=== PATIENT | male | born 1940 | race Caucasian/White ===

== ENCOUNTER 2021-07-07 09:49 | Outpatient (CLI) | payer MEDICARE | END 2021-07-07 09:50 | disposition home or self-care (01) | LOC: CSHCT 09:49 | PROVIDERS: ATTEND Internal Medicine Cardiovascular Disease | DX: M25.861 Other specified joint disorders, right knee (principal) | CPT/HCPCS: 82565 ==

== ENCOUNTER 2021-07-10 09:02 | Outpatient (CLI) | payer MEDICARE | END 2021-07-10 09:03 | disposition home or self-care (01) | LOC: CSHMRI 09:02 | PROVIDERS: ATTEND Internal Medicine Cardiovascular Disease | DX: R22.41 Localized swelling, mass and lump, right lower limb (principal); Z95.0 Presence of cardiac pacemaker; M71.21 Synovial cyst of popliteal space [Baker], right knee; M65.861 Other synovitis and tenosynovitis, right lower leg; J90 Pleural effusion, not elsewhere classified; R91.8 Other nonspecific abnormal finding of lung field | CPT/HCPCS: 71045 ==

== ENCOUNTER 2021-09-25 14:25 | Outpatient (CLI) | payer MEDICARE, BC | END 2021-09-25 14:26 | disposition home or self-care (01) | LOC: CSHSPEC 14:25 | PROVIDERS: ATTEND Neurological Surgery | DX: M48.062 Spinal stenosis, lumbar region with neurogenic claudication (principal); Z95.0 Presence of cardiac pacemaker; J90 Pleural effusion, not elsewhere classified; R91.8 Other nonspecific abnormal finding of lung field; Z98.890 Other specified postprocedural states; M47.816 Spondylosis without myelopathy or radiculopathy, lumbar region | CPT/HCPCS: 71045; 72148; 82565 ==

== ENCOUNTER 2021-10-23 11:10 | Outpatient (CLI) | payer MEDICARE, BC ==
[2021-10-23 21:49] LABS: SARS-CoV-2 PCR by NAA Not Detected (NotDetected)
== END 2021-10-23 11:11 | disposition home or self-care (01) ==
LOC: CSHLAB 11:10
PROVIDERS: ATTEND Internal Medicine Cardiovascular Disease
DX: Z20.822 Contact with and (suspected) exposure to COVID-19 (principal); I48.91 Unspecified atrial fibrillation
CPT/HCPCS: U0003; U0005

== ENCOUNTER 2021-10-25 11:13 | Day surgery (SDC) | payer MEDICARE, BC ==
[2021-10-25] MEDS ORDERED: Ketamine 50 MG/ML (10ML VIAL) ONE (13:12)
[2021-10-25] MEDS ORDERED: Midazolam HCl 2 mg/2 ml Vial ONE (13:12)
[2021-10-25 14:26] VITALS: TEMP 97.8
== END 2021-10-25 14:55 | disposition home or self-care (01) ==
LOC: CSHSDC 11:13
PROVIDERS: ATTEND Internal Medicine Cardiovascular Disease
DX: I48.0 Paroxysmal atrial fibrillation (principal); I11.0 Hypertensive heart disease with heart failure; I50.9 Heart failure, unspecified; I25.10 Atherosclerotic heart disease of native coronary artery without angina pectoris; E11.9 Type 2 diabetes mellitus without complications; E78.5 Hyperlipidemia, unspecified; Z95.1 Presence of aortocoronary bypass graft; Z79.899 Other long term (current) drug therapy; Z79.84 Long term (current) use of oral hypoglycemic drugs; Z79.82 Long term (current) use of aspirin; Z79.4 Long term (current) use of insulin
CPT/HCPCS: 92960; 93005; 93010; J2250

== ENCOUNTER 2022-04-06 09:48 | Inpatient (IN) | payer MEDICARE, BC ==
[2022-04-06 10:16] LABS: Actual Bicarbonate (HCO3v) 25 mEq/L (22-28); Base Excess -0.4 mEq/L (-2.0 to +3.0); Calcium, Ionized (venous) 1.15 mmol/L (1.16-1.32); Chloride (VBG) 97 mmol/L (98-106); Potassium (VBG) 4.77 mmol/L (3.70-5.30); Puncture Site Other Site; RapidComm Collect By lab tech; Sodium 127.2 mmol/L (133-146); pH (venous) 7.37 (7.32-7.43)
[2022-04-06 10:30] LABS: Bilirubin Neg (Negative); Blood, Urine Negative (Negative); Clarity Clear (Clear); Glucose, Urine (Dipstick) 100 mg/dL (Negative); Ketone, Urine Negative (Negative); Leukocyte Negative (Negative); Nitrite Negative (Negative); Protein, Urine (Dipstick) 30 mg/dl (Neg-Trace); Urobilinogen Normal mg/dL (Less than 2)
[2022-04-06 10:35] LABS: MDiff Complete? YES; Mean Corpuscular HGB CONC 32.7 g/dL (32.0-36.0); Mean Corpuscular Hemoglobin 30.2 pg (27.0-33.0); Mean Corpuscular Volume 92.3 fl (81.2-95.1); Mean Platelet Volume 9.5 fl (7.4-10.4); Platelet Count 197 10x3/uL (150-450); RBC Distribution Width 17.7 % (11.5-14.5); Red Blood Cell (RBC) Count 2.98 10x6/uL (4.32-5.72); White Blood Cell (WBC) Count 5.9 10x3/uL (3.5-10.5)
[2022-04-06 10:40] LABS: RBC/HPF 0-3 HPF (0-3); WBC/HPF 0-3 HPF (0-3)
[2022-04-06 10:41] LABS: Bacteria/HPF None Seen HPF (None Seen); Squamous Epithelial None Seen HPF (0-3)
[2022-04-06 10:55] LABS: ALT (SGPT) 21 U/L (8-55); AST (SGOT) 29 U/L (5-34); Albumin 3.5 g/dL (3.4-4.8); Alkaline Phosphatase 161 U/L (40-110); Anion Gap 17 mmol/L (10-20); BUN (Urea Nitrogen) 64 mg/dL (8.4-25.7); Bilirubin, Total 1.1 mg/dL (0.2-1.2); Calc. Creatinine Clearance 0 mL/min (70-130); Calcium 9.3 mg/dL (7.8-10.44); Carbon Dioxide 24 mmol/L (23-31); Chloride 97 mmol/L (98-107); Estimated GFR 19; Globulin 4.2 g/dL (2.4-3.5); Glucose 249 mg/dL (83-110); Lipase 53 U/L (8-78); Magnesium 2.5 mg/dL (1.6-2.6); Potassium 5.1 mmol/L (3.5-5.1); Protein, Total 7.7 g/dL (5.8-8.1); Sodium 133 mmol/L (136-145)
[2022-04-06 11:02] LABS: SARS-CoV-2 NAA Rapid Test Not Detected (NotDetected)
[2022-04-06 11:13] LABS: Lymphocytes 4 % (21-51); Monocytes 11 % (0-10); Neutrophil 85 % (42-75)
[2022-04-06 11:14] LABS: Diff Comment (RBC Morph SCRN) NORMAL; Platelet Morphology Comment Appears Adequate
[2022-04-06 11:15] LABS: CKMB 2.8 ng/mL (0-6.6)
[2022-04-06] MEDS ORDERED: Dextrose 5% in Water 1,000 ML IV PRN (12:59)
[2022-04-06] MEDS ORDERED: Dextrose 50% Abboject 50 ML SYRINGE SLOW IVP PRN (12:59)
[2022-04-06] MEDS ORDERED: Senokot S 8.6-50 MG TAB PO PRN (12:59)
[2022-04-06] MEDS ORDERED: Acetaminophen 325 MG TAB PO PRN (12:59)
[2022-04-06 13:56] LABS: Lactic Acid 1.3 mmol/L (0.5-2.2)
[2022-04-06 14:04] LABS: Troponin I Less than 0.010 ng/mL (< 0.028)
[2022-04-06 14:16] VITALS: BMI 29.4
[2022-04-06] MEDS ORDERED: Famotidine 20 MG TAB PO SCH (15:00)
[2022-04-06] MEDS: Albumin 25% 25 GM/100 ML BOT IVPB SCH ×2 (15:37→22:15)
[2022-04-06 16:53] LABS: Troponin I 0.096 ng/mL (< 0.028)
[2022-04-06] MEDS: HumaLOG 300 UNITS/3 ML VIAL SC PRN (16:55)
[2022-04-06] MEDS: Dronedarone HCl 400 MG TAB PO SCH (17:29)
[2022-04-06] MEDS: Apixaban 2.5 MG TAB PO SCH (20:43)
[2022-04-07] MEDS: Albumin 25% 25 GM/100 ML BOT IVPB SCH ×3 (02:20→08:38)
[2022-04-07 05:17] LABS: #Eosinphils 0.2 10x3/uL (0.0-0.5); #Neutrophils 3.6 10x3/uL (1.5-8.4); %Basophils 0.7 % (0.0-2.0); %Eosinophils 4.3 % (0.0-6.0); %Lymphocytes 11.8 % (18.0-47.0); %Monocytes 18.2 % (0.0-10.0); %Neutrophils 64.6 % (40.0-75.0); Hemoglobin 7.5 g/dL (13.5-17.5); Mean Corpuscular HGB CONC 32.2 g/dL (32.0-36.0); Mean Corpuscular Hemoglobin 29.9 pg (27.0-33.0); Mean Corpuscular Volume 92.8 fl (81.2-95.1); Mean Platelet Volume 9.4 fl (7.4-10.4); Platelet Count 158 10x3/uL (150-450); RBC Distribution Width 17.8 % (11.5-14.5); Red Blood Cell (RBC) Count 2.51 10x6/uL (4.32-5.72); White Blood Cell (WBC) Count 5.6 10x3/uL (3.5-10.5)
[2022-04-07 05:41] LABS: ALT (SGPT) 15 U/L (8-55); AST (SGOT) 20 U/L (5-34); Albumin 3.8 g/dL (3.4-4.8); Alkaline Phosphatase 120 U/L (40-110); Anion Gap 14 mmol/L (10-20); BUN (Urea Nitrogen) 68 mg/dL (8.4-25.7); Bilirubin, Total 1.2 mg/dL (0.2-1.2); Calc. Creatinine Clearance 24 mL/min (70-130); Calcium 9.4 mg/dL (7.8-10.44); Carbon Dioxide 27 mmol/L (23-31); Chloride 98 mmol/L (98-107); Estimated GFR 18; Globulin 3.4 g/dL (2.4-3.5); Glucose 166 mg/dL (83-110); Potassium 4.4 mmol/L (3.5-5.1); Protein, Total 7.2 g/dL (5.8-8.1); Sodium 135 mmol/L (136-145)
[2022-04-07] MEDS: Tamsulosin HCl 0.4 MG CAP PO SCH (08:38)
[2022-04-07] MEDS: Famotidine 20 MG TAB PO SCH (08:38)
[2022-04-07] MEDS: Dronedarone HCl 400 MG TAB PO SCH ×2 (08:38→17:43)
[2022-04-07] MEDS: Ascorbic Acid 500 mg Chewable Tablet PO SCH (08:38)
[2022-04-07] MEDS: Potassium Chloride 20 MEQ TAB PO SCH (08:38)
[2022-04-07] MEDS: Apixaban 2.5 MG TAB PO SCH ×2 (08:39→19:51)
[2022-04-07] MEDS: Cholecalciferol 1,000 UNITS (25 MCG) TAB PO SCH (08:40)
[2022-04-07] MEDS ORDERED: Aspirin 81 mg Enteric Coated Tablet PO SCH (09:00)
[2022-04-07] MEDS ORDERED: Apixaban 2.5 MG TAB PO SCH (09:00)
[2022-04-07] MEDS ORDERED: Atenolol 25 MG TAB PO SCH (09:00)
[2022-04-07] MEDS: HumaLOG 300 UNITS/3 ML VIAL SC PRN ×3 (12:19→21:18)
[2022-04-08 04:58] LABS: #Eosinphils 0.3 10x3/uL (0.0-0.5); #Monocytes 1.3 10x3/uL (0.0-1.1); #Neutrophils 4.5 10x3/uL (1.5-8.4); %Basophils 0.6 % (0.0-2.0); %Eosinophils 4.5 % (0.0-6.0); %Lymphocytes 10.8 % (18.0-47.0); %Monocytes 18.7 % (0.0-10.0); %Neutrophils 65.1 % (40.0-75.0); Hemoglobin 7.9 g/dL (13.5-17.5); Mean Corpuscular HGB CONC 32.6 g/dL (32.0-36.0); Mean Corpuscular Hemoglobin 30.3 pg (27.0-33.0); Mean Corpuscular Volume 92.7 fl (81.2-95.1); Mean Platelet Volume 9.6 fl (7.4-10.4); Platelet Count 166 10x3/uL (150-450); RBC Distribution Width 18.5 % (11.5-14.5); Red Blood Cell (RBC) Count 2.61 10x6/uL (4.32-5.72); White Blood Cell (WBC) Count 6.9 10x3/uL (3.5-10.5)
[2022-04-08 05:12] LABS: Anion Gap 14 mmol/L (10-20); BUN (Urea Nitrogen) 70 mg/dL (8.4-25.7); Calc. Creatinine Clearance 23 mL/min (70-130); Calcium 9.5 mg/dL (7.8-10.44); Carbon Dioxide 27 mmol/L (23-31); Chloride 100 mmol/L (98-107); Estimated GFR 18; Glucose 139 mg/dL (83-110); Potassium 4.2 mmol/L (3.5-5.1); Sodium 137 mmol/L (136-145)
[2022-04-08] MEDS: Ascorbic Acid 500 mg Chewable Tablet PO SCH (08:40)
[2022-04-08] MEDS: Dronedarone HCl 400 MG TAB PO SCH ×2 (08:40→16:54)
[2022-04-08] MEDS: Famotidine 20 MG TAB PO SCH (08:40)
[2022-04-08] MEDS: Aspirin 81 mg Enteric Coated Tablet PO SCH (08:40)
[2022-04-08] MEDS: Apixaban 2.5 MG TAB PO SCH ×2 (08:40→21:10)
[2022-04-08] MEDS: Potassium Chloride 20 MEQ TAB PO SCH (08:40)
[2022-04-08] MEDS: Tamsulosin HCl 0.4 MG CAP PO SCH (08:40)
[2022-04-08] MEDS: Cholecalciferol 1,000 UNITS (25 MCG) TAB PO SCH (08:41)
[2022-04-08] MEDS ORDERED: Furosemide 40 MG TAB PO SCH (09:30)
[2022-04-08] MEDS: HumaLOG 300 UNITS/3 ML VIAL SC PRN ×3 (11:59→21:10)
[2022-04-09 04:59] LABS: Hemoglobin 7.9 g/dL (13.5-17.5); Mean Corpuscular HGB CONC 31.6 g/dL (32.0-36.0); Mean Corpuscular Hemoglobin 29.5 pg (27.0-33.0); Mean Corpuscular Volume 93.3 fl (81.2-95.1); Mean Platelet Volume 9.6 fl (7.4-10.4); Platelet Count 161 10x3/uL (150-450); RBC Distribution Width 18.7 % (11.5-14.5); Red Blood Cell (RBC) Count 2.68 10x6/uL (4.32-5.72); White Blood Cell (WBC) Count 6.8 10x3/uL (3.5-10.5)
[2022-04-09 05:15] LABS: Anion Gap 16 mmol/L (10-20); BUN (Urea Nitrogen) 68 mg/dL (8.4-25.7); Calc. Creatinine Clearance 25 mL/min (70-130); Calcium 9.6 mg/dL (7.8-10.44); Carbon Dioxide 24 mmol/L (23-31); Chloride 98 mmol/L (98-107); Estimated GFR 19; Glucose 192 mg/dL (83-110); Potassium 4.2 mmol/L (3.5-5.1); Sodium 134 mmol/L (136-145)
[2022-04-09 05:33] LABS: MDiff Complete? YES
[2022-04-09 05:44] LABS: Eosinophils 10 % (0-10); Lymphocytes 12 % (21-51); Monocytes 17 % (0-10); Neutrophil 60 % (42-75)
[2022-04-09 05:45] LABS: Platelet Morphology Comment Appears Adequate
[2022-04-09 05:46] LABS: RBC Morphology Normal
[2022-04-09] MEDS: HumaLOG 300 UNITS/3 ML VIAL SC PRN (06:03)
[2022-04-09] MEDS ORDERED: Furosemide 40 MG TAB PO SCH (07:30)
[2022-04-09] MEDS: Dronedarone HCl 400 MG TAB PO SCH (08:35)
[2022-04-09] MEDS: Aspirin 81 mg Enteric Coated Tablet PO SCH (08:36)
[2022-04-09] MEDS: Ascorbic Acid 500 mg Chewable Tablet PO SCH (08:36)
[2022-04-09] MEDS: Famotidine 20 MG TAB PO SCH (08:36)
[2022-04-09] MEDS: Potassium Chloride 20 MEQ TAB PO SCH (08:36)
[2022-04-09] MEDS: Apixaban 2.5 MG TAB PO SCH (08:36)
[2022-04-09] MEDS: Cholecalciferol 1,000 UNITS (25 MCG) TAB PO SCH (08:36)
[2022-04-09] MEDS: Tamsulosin HCl 0.4 MG CAP PO SCH (08:37)
[2022-04-09 11:39] VITALS: BP 98/50; TEMP 98.7
== END 2022-04-09 14:37 | disposition home health service (06) | DRG 291 ==
LOC: CSHERS 09:48 → CSHTELE 12:17
PROVIDERS: ADMIT Family Medicine; ATTEND Internal Medicine
PROC: 30233J1 Transfusion of Nonautologous Serum Albumin into Peripheral Vein, Percutaneous Approach (ICD-10-PCS; principal; 2022-04-06)
DX: I13.2 Hypertensive heart and chronic kidney disease with heart failure and with stage 5 chronic kidney disease, or end stage renal disease (principal); N18.6 End stage renal disease; I50.43 Acute on chronic combined systolic (congestive) and diastolic (congestive) heart failure; E87.1 Hypo-osmolality and hyponatremia; N17.9 Acute kidney failure, unspecified; I50.1 Left ventricular failure, unspecified; D63.1 Anemia in chronic kidney disease; I95.9 Hypotension, unspecified; E11.22 Type 2 diabetes mellitus with diabetic chronic kidney disease; I25.10 Atherosclerotic heart disease of native coronary artery without angina pectoris; Z96.653 Presence of artificial knee joint, bilateral; R79.89 Other specified abnormal findings of blood chemistry; I48.0 Paroxysmal atrial fibrillation; E78.5 Hyperlipidemia, unspecified; J44.9 Chronic obstructive pulmonary disease, unspecified; M54.9 Dorsalgia, unspecified; G89.29 Other chronic pain; D51.9 Vitamin B12 deficiency anemia, unspecified; I87.2 Venous insufficiency (chronic) (peripheral); L89.151 Pressure ulcer of sacral region, stage 1; R53.81 Other malaise; Z20.822 Contact with and (suspected) exposure to COVID-19; Z88.8 Allergy status to other drugs, medicaments and biological substances; Z79.899 Other long term (current) drug therapy; Z79.84 Long term (current) use of oral hypoglycemic drugs; Z95.0 Presence of cardiac pacemaker; Z79.01 Long term (current) use of anticoagulants; Z98.890 Other specified postprocedural states; Z95.1 Presence of aortocoronary bypass graft; Z79.82 Long term (current) use of aspirin; Z79.4 Long term (current) use of insulin
CPT/HCPCS: 36415; 36416; 71045; 80048; 80053; 81003; 81015; 82553; 82728; 82805; 83540; 83550; 83605; 83690; 83735; 83880; 84484; 85025; 85379; 93005; J1815; P9047; U0002

== ENCOUNTER 2022-04-13 10:51 | Inpatient (IN) | payer MEDICARE, BC ==
[2022-04-13 11:25] LABS: #Eosinphils 0.1 10x3/uL (0.0-0.5); #Monocytes 1.6 10x3/uL (0.0-1.1); #Neutrophils 7.9 10x3/uL (1.5-8.4); %Basophils 0.4 % (0.0-2.0); %Eosinophils 0.8 % (0.0-6.0); %Lymphocytes 6.7 % (18.0-47.0); %Neutrophils 76.6 % (40.0-75.0); Hemoglobin 9.2 g/dL (13.5-17.5); Mean Corpuscular HGB CONC 32.4 g/dL (32.0-36.0); Mean Corpuscular Hemoglobin 30.4 pg (27.0-33.0); Mean Corpuscular Volume 93.7 fl (81.2-95.1); Mean Platelet Volume 9.6 fl (7.4-10.4); Platelet Count 192 10x3/uL (150-450); RBC Distribution Width 20.8 % (11.5-14.5); Red Blood Cell (RBC) Count 3.03 10x6/uL (4.32-5.72); White Blood Cell (WBC) Count 10.3 10x3/uL (3.5-10.5)
[2022-04-13 11:32] LABS: ALT (SGPT) 24 U/L (8-55); AST (SGOT) 25 U/L (5-34); Albumin 3.8 g/dL (3.4-4.8); Alkaline Phosphatase 129 U/L (40-110); Anion Gap 17 mmol/L (10-20); BUN (Urea Nitrogen) 84 mg/dL (8.4-25.7); Bilirubin, Total 2.4 mg/dL (0.2-1.2); Calc. Creatinine Clearance 0 mL/min (70-130); Calcium 9.4 mg/dL (7.8-10.44); Carbon Dioxide 22 mmol/L (23-31); Chloride 97 mmol/L (98-107); Estimated GFR 15; Globulin 3.8 g/dL (2.4-3.5); Glucose 298 mg/dL (83-110); Lipase 24 U/L (8-78); Potassium 5.4 mmol/L (3.5-5.1); Protein, Total 7.6 g/dL (5.8-8.1); Sodium 131 mmol/L (136-145)
[2022-04-13 11:52] LABS: CKMB 1.6 ng/mL (0-6.6)
[2022-04-13] MEDS ORDERED: Furosemide 40 MG/4 ML VIAL ONE (13:09)
[2022-04-13 13:32] LABS: SARS-CoV-2 NAA Rapid Test Not Detected (NotDetected)
[2022-04-13] MEDS ORDERED: Ondansetron PF 4 MG/2 ML Vial IVP PRN (14:47)
[2022-04-13] MEDS ORDERED: Ondansetron ODT 4 MG TAB PO PRN (14:47)
[2022-04-13] MEDS ORDERED: Acetaminophen 325 MG TAB PO PRN (14:47)
[2022-04-13] MEDS ORDERED: Senokot S 8.6-50 MG TAB PO PRN (14:47)
[2022-04-13] MEDS ORDERED: Albuterol Sulfate 2.5 mg/3 ml Neb NEB PRN (14:57)
[2022-04-13] MEDS ORDERED: Benzonatate 100 MG CAP PO PRN (14:58)
[2022-04-13] MEDS ORDERED: hydrALAZINE 20 MG/ML VIAL SLOW IVP PRN (14:59)
[2022-04-13] MEDS ORDERED: Dextrose 5% in Water 1,000 ML IV PRN (15:34)
[2022-04-13] MEDS ORDERED: Dextrose 50% Abboject 50 ML SYRINGE SLOW IVP PRN (15:34)
[2022-04-13] MEDS ORDERED: Furosemide 40 MG/4 ML VIAL SLOW IVP SCH (19:00)
[2022-04-13 20:16] VITALS: BMI 31.8
[2022-04-14 00:44] LABS: Bilirubin Neg (Negative); Blood, Urine Negative (Negative); Clarity Clear (Clear); Glucose, Urine (Dipstick) 100 mg/dL (Negative); Ketone, Urine Negative (Negative); Leukocyte Negative (Negative); Nitrite Negative (Negative); Protein, Urine (Dipstick) Negative (Neg-Trace); Urobilinogen Normal mg/dL (Less than 2)
[2022-04-14 01:01] LABS: Bacteria/HPF Rare-Few HPF (None Seen); RBC/HPF 0-3 HPF (0-3); Squamous Epithelial 0-3 HPF (0-3)
[2022-04-14 05:02] LABS: Hemoglobin 8.2 g/dL (13.5-17.5); Mean Corpuscular HGB CONC 31.5 g/dL (32.0-36.0); Mean Corpuscular Hemoglobin 30.1 pg (27.0-33.0); Mean Corpuscular Volume 95.6 fl (81.2-95.1); Mean Platelet Volume 9.4 fl (7.4-10.4); Platelet Count 175 10x3/uL (150-450); Red Blood Cell (RBC) Count 2.72 10x6/uL (4.32-5.72); White Blood Cell (WBC) Count 6.8 10x3/uL (3.5-10.5)
[2022-04-14 05:24] LABS: Anion Gap 16 mmol/L (10-20); BUN (Urea Nitrogen) 80 mg/dL (8.4-25.7); Calc. Creatinine Clearance 23 mL/min (70-130); Carbon Dioxide 25 mmol/L (23-31); Chloride 99 mmol/L (98-107); Estimated GFR 16; Glucose 193 mg/dL (83-110); MDiff Complete? YES; Potassium 4.5 mmol/L (3.5-5.1); Sodium 135 mmol/L (136-145)
[2022-04-14 05:32] LABS: Eosinophils 4 % (0-10); Lymphocytes 8 % (21-51); Monocytes 15 % (0-10); Neutrophil 72 % (42-75)
[2022-04-14 05:33] LABS: Anisocytosis MODERATE=16-30 cells (100X) (0-5/hpf); Hypochromia MODERATE=16-30 cells (100X) (0-5/hpf); Macrocytosis SLIGHT = 6-15 cells (100X) (0-5/hpf); Microcytosis SLIGHT = 6-15 cells (100X) (0-5/hpf)
[2022-04-14 05:34] LABS: Platelet Morphology Comment Appears Adequate; Polychromasia SLIGHT = 2-3 cells (100X) (0-2/hpf)
[2022-04-14] MEDS ORDERED: Furosemide 40 MG/4 ML VIAL SLOW IVP SCH (06:00)
[2022-04-14] MEDS: Furosemide 40 MG/4 ML VIAL SLOW IVP SCH ×2 (06:40→10:55)
[2022-04-14] MEDS ORDERED: EPOETIN ALFA-EPBX (ESRD) 4,000 UNIT/ML VIAL SC SCH (10:00)
[2022-04-14] MEDS: Dronedarone HCl 400 MG TAB PO SCH ×2 (10:56→20:49)
[2022-04-14] MEDS: Lantus 1000 UNITS/10 ML VIAL SC SCH ×2 (10:56→20:49)
[2022-04-14] MEDS: Tamsulosin HCl 0.4 MG CAP PO SCH (10:56)
[2022-04-14] MEDS: Aspirin 81 mg Enteric Coated Tablet PO SCH (10:56)
[2022-04-14] MEDS ORDERED: Apixaban 2.5 MG TAB PO SCH (12:00)
[2022-04-14] MEDS: HumaLOG 300 UNITS/3 ML VIAL SC PRN ×2 (18:22→20:50)
[2022-04-14] MEDS: Apixaban 2.5 MG TAB PO SCH (20:48)
[2022-04-15 05:02] LABS: Hemoglobin 8.3 g/dL (13.5-17.5); Mean Corpuscular HGB CONC 32.9 g/dL (32.0-36.0); Mean Platelet Volume 9.2 fl (7.4-10.4); Platelet Count 173 10x3/uL (150-450); RBC Distribution Width 20.8 % (11.5-14.5); Red Blood Cell (RBC) Count 2.68 10x6/uL (4.32-5.72); White Blood Cell (WBC) Count 5.8 10x3/uL (3.5-10.5)
[2022-04-15 05:28] LABS: Anion Gap 15 mmol/L (10-20); BUN (Urea Nitrogen) 76 mg/dL (8.4-25.7); Calc. Creatinine Clearance 25 mL/min (70-130); Calcium 9.5 mg/dL (7.8-10.44); Carbon Dioxide 27 mmol/L (23-31); Chloride 100 mmol/L (98-107); Estimated GFR 17; Glucose 107 mg/dL (83-110); Sodium 138 mmol/L (136-145)
[2022-04-15 05:55] LABS: MDiff Complete? YES
[2022-04-15 06:02] LABS: Band 1 % (5-11); Eosinophils 5 % (0-10); Lymphocytes 16 % (21-51); Monocytes 19 % (0-10); Neutrophil 59 % (42-75)
[2022-04-15 06:03] LABS: Anisocytosis MODERATE=16-30 cells (100X) (0-5/hpf); Hypochromia SLIGHT = 6-15 cells (100X) (0-5/hpf); Macrocytosis SLIGHT = 6-15 cells (100X) (0-5/hpf); Microcytosis SLIGHT = 6-15 cells (100X) (0-5/hpf); Platelet Morphology Comment Appears Adequate; Polychromasia SLIGHT = 2-3 cells (100X) (0-2/hpf)
[2022-04-15] MEDS: Furosemide 40 MG/4 ML VIAL SLOW IVP SCH ×2 (06:11→14:46)
[2022-04-15] MEDS ORDERED: Nitroglycerin 0.4 MG TAB (25 Tab Bottle) SL PRN (08:36)
[2022-04-15] MEDS: Zinc Gluconate 50 MG TAB PO SCH (09:50)
[2022-04-15] MEDS: Potassium Chloride 20 MEQ TAB PO SCH (09:50)
[2022-04-15] MEDS: Apixaban 2.5 MG TAB PO SCH ×2 (09:51→21:05)
[2022-04-15] MEDS: Ascorbic Acid 500 mg Chewable Tablet PO SCH (09:51)
[2022-04-15] MEDS: Cholecalciferol 1,000 UNITS (25 MCG) TAB PO SCH (09:51)
[2022-04-15] MEDS: Tamsulosin HCl 0.4 MG CAP PO SCH (09:51)
[2022-04-15] MEDS: Aspirin 81 mg Enteric Coated Tablet PO SCH (09:51)
[2022-04-15] MEDS: Dronedarone HCl 400 MG TAB PO SCH ×2 (09:51→21:03)
[2022-04-15] MEDS: Lantus 1000 UNITS/10 ML VIAL SC SCH ×2 (10:14→21:06)
[2022-04-15] MEDS: HumaLOG 300 UNITS/3 ML VIAL SC PRN ×2 (17:10→21:06)
[2022-04-16 04:34] LABS: Hemoglobin 8.7 g/dL (13.5-17.5); Mean Corpuscular HGB CONC 32.2 g/dL (32.0-36.0); Mean Corpuscular Hemoglobin 30.5 pg (27.0-33.0); Mean Corpuscular Volume 94.7 fl (81.2-95.1); Mean Platelet Volume 9.2 fl (7.4-10.4); Platelet Count 186 10x3/uL (150-450); RBC Distribution Width 20.9 % (11.5-14.5); Red Blood Cell (RBC) Count 2.85 10x6/uL (4.32-5.72); White Blood Cell (WBC) Count 5.9 10x3/uL (3.5-10.5)
[2022-04-16 04:49] LABS: Anion Gap 15 mmol/L (10-20); BUN (Urea Nitrogen) 73 mg/dL (8.4-25.7); Calc. Creatinine Clearance 25 mL/min (70-130); Calcium 9.7 mg/dL (7.8-10.44); Carbon Dioxide 28 mmol/L (23-31); Chloride 100 mmol/L (98-107); Estimated GFR 18; Glucose 198 mg/dL (83-110); Potassium 4.1 mmol/L (3.5-5.1); Sodium 139 mmol/L (136-145)
[2022-04-16 05:48] LABS: MDiff Complete? YES; Platelet Morphology Comment Appears Adequate
[2022-04-16 05:53] LABS: Band 5 % (5-11); Eosinophils 6 % (0-10); Lymphocytes 11 % (21-51); Monocytes 17 % (0-10); Neutrophil 61 % (42-75)
[2022-04-16] MEDS ORDERED: Furosemide 20 MG/2 ML VIAL ONE (06:27)
[2022-04-16] MEDS: Furosemide 40 MG/4 ML VIAL SLOW IVP SCH ×2 (06:28→15:24)
[2022-04-16] MEDS: Apixaban 2.5 MG TAB PO SCH (08:55)
[2022-04-16] MEDS: Lantus 1000 UNITS/10 ML VIAL SC SCH (08:55)
[2022-04-16] MEDS: Tamsulosin HCl 0.4 MG CAP PO SCH (08:56)
[2022-04-16] MEDS: Cholecalciferol 1,000 UNITS (25 MCG) TAB PO SCH (08:56)
[2022-04-16] MEDS: Aspirin 81 mg Enteric Coated Tablet PO SCH (08:56)
[2022-04-16] MEDS: Potassium Chloride 20 MEQ TAB PO SCH (08:56)
[2022-04-16] MEDS: Ascorbic Acid 500 mg Chewable Tablet PO SCH (08:56)
[2022-04-16] MEDS: Dronedarone HCl 400 MG TAB PO SCH (08:56)
[2022-04-16] MEDS: Zinc Gluconate 50 MG TAB PO SCH (08:56)
[2022-04-16 16:36] VITALS: BP 116/58; TEMP 97.8
[2022-04-18 15:13] LABS: IFE-Serum Interpretation Note: (.); IgA - Total IgA (Sendout) 459 mg/dL (61-437); Immunoglobulin - G (Sendout) 1885 mg/dL (603-1613); Immunoglobulin - M (Sendout) 118 mg/dL (15-143)
[2022-04-19 14:13] LABS: Kappa/Lambda Ratio 8.54 (1.83-14.26)
== END 2022-04-16 16:43 | DRG 291 ==
LOC: CSHERS 10:51 → CSHTELE 17:37
PROVIDERS: ADMIT Family Medicine; ATTEND Family Medicine
DX: I13.2 Hypertensive heart and chronic kidney disease with heart failure and with stage 5 chronic kidney disease, or end stage renal disease (principal); I50.43 Acute on chronic combined systolic (congestive) and diastolic (congestive) heart failure; N18.6 End stage renal disease; I48.20 Chronic atrial fibrillation, unspecified; E87.1 Hypo-osmolality and hyponatremia; N17.9 Acute kidney failure, unspecified; E87.2 Acidosis; I25.10 Atherosclerotic heart disease of native coronary artery without angina pectoris; E11.22 Type 2 diabetes mellitus with diabetic chronic kidney disease; K21.9 Gastro-esophageal reflux disease without esophagitis; D63.1 Anemia in chronic kidney disease; N40.0 Benign prostatic hyperplasia without lower urinary tract symptoms; Z96.653 Presence of artificial knee joint, bilateral; E87.5 Hyperkalemia; I48.0 Paroxysmal atrial fibrillation; E78.5 Hyperlipidemia, unspecified; M19.012 Primary osteoarthritis, left shoulder; L22 Diaper dermatitis; M19.011 Primary osteoarthritis, right shoulder; I87.2 Venous insufficiency (chronic) (peripheral); I49.5 Sick sinus syndrome; E11.65 Type 2 diabetes mellitus with hyperglycemia; Z20.822 Contact with and (suspected) exposure to COVID-19; Z79.899 Other long term (current) drug therapy; Z79.4 Long term (current) use of insulin; Z79.84 Long term (current) use of oral hypoglycemic drugs; Z79.01 Long term (current) use of anticoagulants; Z95.1 Presence of aortocoronary bypass graft; Z98.890 Other specified postprocedural states; Z88.8 Allergy status to other drugs, medicaments and biological substances; Z79.82 Long term (current) use of aspirin; Z95.0 Presence of cardiac pacemaker
CPT/HCPCS: 36415; 36416; 71045; 76770; 80048; 80053; 81001; 82553; 83690; 83880; 83883; 83970; 84100; 84156; 84166; 84484; 85025; 86334; 86335; 93005; 93306; 94640; 94760; 96361; 96374; J1815; J1940; J7620; Q5105; U0002